=== PATIENT | female | born 1945 | race Caucasian/White ===

== ENCOUNTER 2019-07-03 12:07 | Day surgery (SDC) | payer MEDICARE ==
[2019-07-03] VITALS (10 sets, daily range): BP systolic 150–173; BP diastolic 61–93
[~2019-07-03] VITALS: Ht 165.1 cm; Wt 65.3 kg
[2019-07-03] MEDS ORDERED: diphenhydrAMINE 25mg capsule PO PRN (12:35)
[2019-07-03] MEDS ORDERED: normal saline 1,000 ML IV SCH (12:35)
[2019-07-03] MEDS ORDERED: ASPI-1265 PO (13:10)
[2019-07-03] MEDS ORDERED: MAGN64TA8 PO (13:10)
[2019-07-03] MEDS ORDERED: GLYB5TAB7 PO (13:10)
[2019-07-03] MEDS ORDERED: ISOS120T13 PO (13:10)
[2019-07-03] MEDS ORDERED: PANT-47 PO (13:10)
[2019-07-03] MEDS ORDERED: CLOP75TA35 PO (13:10)
[2019-07-03] MEDS ORDERED: DICL75TA5 PO (13:10)
[2019-07-03] MEDS ORDERED: METF500T PO (13:10)
[2019-07-03] MEDS ORDERED: AMLO2.5T2 PO (13:10)
[2019-07-03] MEDS ORDERED: ATOR40TA71 PO (13:10)
[2019-07-03] MEDS ORDERED: METO-411 PO (13:10)
[2019-07-03 13:15] LABS: BASOPHILS # (AUTO) 0.1 X10'3 (0-0.2); BASOPHILS % (AUTO) 0.9 % (0-1); EOSINOPHILS # (AUTO) 0.4 X10'3 (0-0.9); EOSINOPHILS % (AUTO) 5.8 % (0-6); HEMATOCRIT 32.8 % (35.0-45.0); HEMOGLOBIN 10.9 g/dl (12.0-16.0); LYMPHOCYTES # (AUTO) 2.9 X10'3 (1.1-4.8); LYMPHOCYTES % (AUTO) 42.8 % (21-51); MEAN CORPUSCULAR HEMOGLOBIN 29.8 PG (27.0-31.0); MEAN CORPUSCULAR HGB CONC 33.3 g/dL (33.0-36.5); MEAN CORPUSCULAR VOLUME 89.5 FL (78-98); MEAN PLATELET VOLUME 7.3 FL (7.4-10.4); MONOCYTES # (AUTO) 0.5 X10'3 (0-0.9); MONOCYTES % (AUTO) 7.8 % (2-12); NEUTROPHILS # (AUTO) 2.9 X10'3 (1.8-7.7); NEUTROPHILS % (AUTO) 42.7 % (42-75); PLATELET COUNT 258 X10'3 (140-440); RED BLOOD COUNT 3.67 X10'6 (4.20-5.60); RED CELL DISTRIBUTION WIDTH 14.8 % (11.5-14.5); WHITE BLOOD COUNT 6.8 X10'3 (4.5-11.0)
[2019-07-03 13:31] LABS: ALBUMIN 4.7 G/DL (3.4-5.0); ANION GAP 11 (8-16); BLOOD UREA NITROGEN 23 MG/DL (7-18); BUN/CREATININE RATIO 15.2 (6.6-38.0); CHLORIDE 105 MMOL/L (99-107); CREATININE 1.51 MG/DL (0.40-0.90); GLUCOSE 77 MG/DL (70-104); MAGNESIUM 1.7 MG/DL (1.5-2.4); SODIUM 142 MMOL/L (135-145); TOTAL CARBON DIOXIDE 26.3 MMOL/L (24-32); eGFR 34 ML/MIN
--- NOTE | 2019-07-03 14:18 | NUR ---
BLOOD SUGAR CHECKED, READING 60.. GIVEN ORANGE JUICE, RECHECKED 15 MINUTES LATER WITH A READING OF 63, 1 MORE ORANGE JUICE GIVEN. RECHECKED AND GLUCOSE LEVEL UP TO 93. ASYMPTOMATIC DURING ALL EPISODES OF LOW GLUCOSE.
[2019-07-03] MEDS ORDERED: iohexol 350 MG/ML 50ML vial IV ONE (14:34)
[2019-07-03] MEDS ORDERED: iohexol 350MG/ML 100ml bottle IV ONE ×4 (14:34→16:30)
[2019-07-03] MEDS ORDERED: fentaNYL/PF 50MCG/1 ML 2ML syringe ONE ×2 (14:34→15:37)
[2019-07-03] MEDS ORDERED: midazolam 2 mg/2 ml injection ONE ×2 (14:34→15:20)
[2019-07-03] MEDS ORDERED: LIDOcaine 1% W/epiNEPHrine 1:100,000 20ml vial ONE ×2 (14:35→14:36)
[2019-07-03] MEDS ORDERED: heparin 1,000unit/ml 10ml vial 10 ML ONE (15:11)
[2019-07-03] MEDS ORDERED: nitroGLYCERIN-Tridil 50MG/D5W 250 ML IV ONE (15:36)
[2019-07-03] MEDS ORDERED: adenosine 90 MG/30ml kit =/or below 120kg Cath Lab IV ONE ×2 (16:08→16:10)
[2019-07-03] MEDS ORDERED: clopidogrel 300mg tablet ONE (16:37)
[2019-07-03] MEDS ORDERED: nitroGLYCERIN 0.4mg SUBLingual tab SL ONE (16:39)
[2019-07-03] MEDS ORDERED: ondansetron/PF 4mg/2ml inj ONE (16:54)
[2019-07-03] MEDS ORDERED: acetaminophen 325mg tablet PO PRN (17:25)
[2019-07-03] MEDS ORDERED: HYDROcodone/acetaminophen 5mg/325mg tablet PO PRN (17:25)
[2019-07-03] MEDS ORDERED: ondansetron/PF 4mg/2ml inj IV PRN (17:25)
[2019-07-03] MEDS ORDERED: HYDROcodone/acetaminophen 10/325mg tab PO PRN (17:25)
[2019-07-03] MEDS ORDERED: proCHLORperazine 10 MG/2 ml inj IV PRN (17:25)
[2019-07-03] MEDS ORDERED: ketorolac tromethamine 15mg/ml inj. IV ONE (17:30)
== END 2019-07-03 21:10 | disposition home or self-care (01) ==
LOC: SSTAY O 12:07
PROVIDERS: ATTEND Internal Medicine Cardiovascular Disease
DX: I25.118 Atherosclerotic heart disease of native coronary artery with other forms of angina pectoris (principal); I10 Essential (primary) hypertension; E11.22 Type 2 diabetes mellitus with diabetic chronic kidney disease; N18.9 Chronic kidney disease, unspecified; E78.5 Hyperlipidemia, unspecified; E11.40 Type 2 diabetes mellitus with diabetic neuropathy, unspecified; D64.9 Anemia, unspecified; Z87.891 Personal history of nicotine dependence; Z79.899 Other long term (current) drug therapy; Z79.84 Long term (current) use of oral hypoglycemic drugs; Z79.82 Long term (current) use of aspirin; Z95.5 Presence of coronary angioplasty implant and graft; Z85.038 Personal history of other malignant neoplasm of large intestine; Z98.890 Other specified postprocedural states; Z90.49 Acquired absence of other specified parts of digestive tract; Z88.8 Allergy status to other drugs, medicaments and biological substances; Z82.49 Family history of ischemic heart disease and other diseases of the circulatory system
CPT/HCPCS: 36415; 80048; 82948; 83735; 85025; 85610; 93005; 93458; 99152; 99153; C1725; C1769; C1874; C1894; C9600; J0153; J1644; J1885; J2250; J2405; J3010; J7030; Q0163; Q9967; A4620; A6258; C1760; C9601; J3490

== ENCOUNTER 2019-08-20 06:21 | Day surgery (SDC) | payer MEDICARE ==
[2019-08-20] VITALS (9 sets, daily range): BP systolic 109–133; BP diastolic 57–76
[~2019-08-20] VITALS: Ht 165.1 cm; Wt 64.1 kg
[~2019-08-20 06:21] MED LIST: AMLO2.5T2 PO; ASPI-1265 PO; ATOR40TA71 PO; CLOP75TA35 PO; DICL75TA5 PO; GLYB5TAB7 PO; ISOS120T13 PO; MAGN64TA8 PO; METF500T PO; METO-411 PO; PANT-47 PO
[2019-08-20] MEDS ORDERED: normal saline 1,000 ML IV SCH (06:45)
[2019-08-20] MEDS ORDERED: diphenhydrAMINE 25mg capsule PO PRN (06:45)
[2019-08-20 07:21] LABS: BASOPHILS % (AUTO) 0.4 % (0-1); EOSINOPHILS # (AUTO) 0.2 X10'3 (0-0.9); EOSINOPHILS % (AUTO) 2.9 % (0-6); LYMPHOCYTES # (AUTO) 2.5 X10'3 (1.1-4.8); LYMPHOCYTES % (AUTO) 32.3 % (21-51); MEAN CORPUSCULAR HEMOGLOBIN 30.1 PG (27.0-31.0); MEAN CORPUSCULAR HGB CONC 32.8 g/dL (33.0-36.5); MEAN CORPUSCULAR VOLUME 91.9 FL (78-98); MONOCYTES # (AUTO) 0.7 X10'3 (0-0.9); MONOCYTES % (AUTO) 9.1 % (2-12); NEUTROPHILS # (AUTO) 4.3 X10'3 (1.8-7.7); NEUTROPHILS % (AUTO) 55.3 % (42-75); PLATELET COUNT 262 X10'3 (140-440); RED BLOOD COUNT 2.07 X10'6 (4.20-5.60); RED CELL DISTRIBUTION WIDTH 15.5 % (11.5-14.5); WHITE BLOOD COUNT 7.8 X10'3 (4.5-11.0)
[2019-08-20 07:27] LABS: HEMOGLOBIN 6.2 g/dl (12.0-16.0)
[2019-08-20 07:38] LABS: ALBUMIN 3.5 G/DL (3.4-5.0); ANION GAP 12 (8-16); BLOOD UREA NITROGEN 48 MG/DL (7-18); CALCIUM 9.6 MG/DL (8.5-10.1); CHLORIDE 106 MMOL/L (99-107); CREATININE 1.78 MG/DL (0.40-0.90); GLUCOSE 200 MG/DL (70-104); MAGNESIUM 1.9 MG/DL (1.5-2.4); POTASSIUM 5.3 MMOL/L (3.5-5.1); SODIUM 139 MMOL/L (135-145); TOTAL CARBON DIOXIDE 20.9 MMOL/L (24-32); eGFR 28 ML/MIN
[2019-08-20] MEDS ORDERED: acetaminophen 325mg tablet PO ONE (09:25)
[2019-08-20] MEDS ORDERED: DULA0.75 SQ (12:42)
[2019-08-20] MEDS ORDERED: RANO500T3 PO (12:42)
[2019-08-20 16:31] LABS: HEMATOCRIT 24.6 % (35.0-45.0); HEMOGLOBIN 8.5 g/dl (12.0-16.0); MEAN CORPUSCULAR HEMOGLOBIN 30.7 PG (27.0-31.0); MEAN CORPUSCULAR HGB CONC 34.7 g/dL (33.0-36.5); MEAN CORPUSCULAR VOLUME 88.7 FL (78-98); MEAN PLATELET VOLUME 7.1 FL (7.4-10.4); PLATELET COUNT 216 X10'3 (140-440); RED BLOOD COUNT 2.77 X10'6 (4.20-5.60); RED CELL DISTRIBUTION WIDTH 14.2 % (11.5-14.5); WHITE BLOOD COUNT 7.4 X10'3 (4.5-11.0)
--- NOTE | 2019-08-20 16:45 | NUR ---
Lab results called in to Dr. Palma. New orders received to discharge pt to home and follow up with primary MD. Addendum: 08/20/19 at 1843 by Cornelio Nunez RN Amended: Links added.
== END 2019-08-20 17:20 | disposition home or self-care (01) ==
LOC: SSTAY O 06:21
PROVIDERS: ATTEND Internal Medicine Cardiovascular Disease
DX: I25.118 Atherosclerotic heart disease of native coronary artery with other forms of angina pectoris (principal); Z53.8 Procedure and treatment not carried out for other reasons; D64.9 Anemia, unspecified; I25.2 Old myocardial infarction; E11.22 Type 2 diabetes mellitus with diabetic chronic kidney disease; I12.9 Hypertensive chronic kidney disease with stage 1 through stage 4 chronic kidney disease, or unspecified chronic kidney disease; N18.9 Chronic kidney disease, unspecified; E78.5 Hyperlipidemia, unspecified; E11.21 Type 2 diabetes mellitus with diabetic nephropathy; K21.9 Gastro-esophageal reflux disease without esophagitis; Z85.038 Personal history of other malignant neoplasm of large intestine; Z90.49 Acquired absence of other specified parts of digestive tract; Z98.890 Other specified postprocedural states; Z90.721 Acquired absence of ovaries, unilateral; Z79.01 Long term (current) use of anticoagulants; Z79.82 Long term (current) use of aspirin; Z79.899 Other long term (current) drug therapy; Z79.84 Long term (current) use of oral hypoglycemic drugs; Z95.5 Presence of coronary angioplasty implant and graft; Z72.89 Other problems related to lifestyle; Z88.8 Allergy status to other drugs, medicaments and biological substances
CPT/HCPCS: 36415; 36430; 80048; 82607; 82746; 82948; 83735; 85025; 85027; 85610; 86885; 86900; 86901; 86920; 93005; J7030; P9016

== ENCOUNTER 2021-05-08 08:16 | Day surgery (SDC) | payer MEDICARE ==
[2021-05-08] VITALS (10 sets, daily range): BP systolic 127–157; BP diastolic 70–86
[~2021-05-08] VITALS: Ht 165.1 cm; Wt 65.8 kg
[~2021-05-08 08:16] MED LIST changes: +CLOP75TA34 PO; -CLOP75TA35 PO; +DULA0.75 SQ; +RANO500T3 PO
[2021-05-08] MEDS ORDERED: diphenhydrAMINE 25mg capsule PO PRN (08:50)
[2021-05-08] MEDS ORDERED: normal saline 1,000 ML IV SCH ×2 (08:50→13:15)
[2021-05-08] MEDS ORDERED: ASCO500C18 PO (09:58)
[2021-05-08] MEDS ORDERED: NITR0.4T48 SL (10:03)
[2021-05-08] MEDS ORDERED: METO100T14 PO (10:21)
[2021-05-08] MEDS ORDERED: INSU300I (10:21)
[2021-05-08] MEDS ORDERED: dextrose ORAL solution 15 GM/59 ML bottle PO ONE (10:25)
[2021-05-08 10:41] LABS: BASOPHILS % (AUTO) 0.6 % (0-1); EOSINOPHILS # (AUTO) 0.2 X10'3 (0-0.9); EOSINOPHILS % (AUTO) 3.6 % (0-6); HEMATOCRIT 38.9 % (35.0-45.0); HEMOGLOBIN 13.2 g/dl (12.0-16.0); LYMPHOCYTES # (AUTO) 2.1 X10'3 (1.1-4.8); LYMPHOCYTES % (AUTO) 33.7 % (21-51); MEAN CORPUSCULAR HEMOGLOBIN 31.8 PG (27.0-31.0); MEAN CORPUSCULAR HGB CONC 33.9 g/dL (33.0-36.5); MEAN CORPUSCULAR VOLUME 93.7 FL (78-98); MEAN PLATELET VOLUME 7.3 FL (7.4-10.4); MONOCYTES # (AUTO) 0.5 X10'3 (0-0.9); MONOCYTES % (AUTO) 8.1 % (2-12); NEUTROPHILS # (AUTO) 3.3 X10'3 (1.8-7.7); PLATELET COUNT 207 X10'3 (140-440); RED BLOOD COUNT 4.16 X10'6 (4.20-5.60); RED CELL DISTRIBUTION WIDTH 13.1 % (11.5-14.5); WHITE BLOOD COUNT 6.1 X10'3 (4.5-11.0)
[2021-05-08 10:49] LABS: ALBUMIN 4.5 G/DL (3.4-5.0); ANION GAP 9 (8-16); BLOOD UREA NITROGEN 26 MG/DL (7-18); BUN/CREATININE RATIO 12.9 (6.6-38.0); CALCIUM 9.7 MG/DL (8.5-10.1); CHLORIDE 107 MMOL/L (99-107); CREATININE 2.02 MG/DL (0.40-0.90); GLUCOSE 76 MG/DL (70-104); MAGNESIUM 2.3 MG/DL (1.5-2.4); SODIUM 143 MMOL/L (135-145); TOTAL CARBON DIOXIDE 26.7 MMOL/L (24-32); eGFR 24 ML/MIN
[2021-05-08] MEDS ORDERED: LIDOcaine 1% (10mg/ml)w/preservative injection 20ml MDV ONE (11:11)
[2021-05-08] MEDS ORDERED: midazolam 1 mg/ML 2ml injection ONE ×3 (11:11→12:08)
[2021-05-08] MEDS ORDERED: fentaNYL/PF 50MCG/1 ML 2ML syringe ONE ×2 (11:11→12:08)
[2021-05-08] MEDS ORDERED: iohexol 350 MG/ML 50ML vial IV ONE (11:11)
[2021-05-08] MEDS ORDERED: heparin 1,000unit/ml 10ml vial 10 ML ONE (11:11)
[2021-05-08] MEDS ORDERED: iohexol 350MG/ML 100ml bottle IV ONE (11:11)
[2021-05-08] MEDS ORDERED: iohexol 350 MG/1 ML 200ml bottle ONE (11:48)
[2021-05-08] MEDS ORDERED: clopidogrel 300mg tablet ONE (12:41)
[2021-05-08] MEDS ORDERED: ondansetron/PF 4mg/2ml inj IV PRN (13:15)
[2021-05-08] MEDS ORDERED: HYDROcodone/acetaminophen 10/325mg tab PO PRN (13:20)
[2021-05-08] MEDS ORDERED: HYDROcodone/acetaminophen 5mg/325mg tablet PO PRN (13:20)
[2021-05-08] MEDS ORDERED: proCHLORperazine 10 MG/2 ml inj IV PRN (13:20)
== END 2021-05-08 17:45 | disposition home or self-care (01) ==
LOC: SSTAY O 08:16
PROVIDERS: ATTEND Internal Medicine Cardiovascular Disease
DX: R07.89 Other chest pain (principal); T82.855A Stenosis of coronary artery stent, initial encounter; I25.118 Atherosclerotic heart disease of native coronary artery with other forms of angina pectoris; E11.21 Type 2 diabetes mellitus with diabetic nephropathy; E78.5 Hyperlipidemia, unspecified; C18.9 Malignant neoplasm of colon, unspecified; K21.9 Gastro-esophageal reflux disease without esophagitis; I25.2 Old myocardial infarction; E11.22 Type 2 diabetes mellitus with diabetic chronic kidney disease; I12.9 Hypertensive chronic kidney disease with stage 1 through stage 4 chronic kidney disease, or unspecified chronic kidney disease; N18.9 Chronic kidney disease, unspecified; D64.9 Anemia, unspecified; Z95.5 Presence of coronary angioplasty implant and graft; Z85.038 Personal history of other malignant neoplasm of large intestine; Z90.49 Acquired absence of other specified parts of digestive tract; Z98.890 Other specified postprocedural states; Z90.721 Acquired absence of ovaries, unilateral; Z72.89 Other problems related to lifestyle; Z88.8 Allergy status to other drugs, medicaments and biological substances; Z79.01 Long term (current) use of anticoagulants; Z79.899 Other long term (current) drug therapy; Z82.49 Family history of ischemic heart disease and other diseases of the circulatory system; Y83.8 Other surgical procedures as the cause of abnormal reaction of the patient, or of later complication, without mention of misadventure at the time of the procedure; Y92.89 Other specified places as the place of occurrence of the external cause
CPT/HCPCS: 36415; 80048; 82948; 83735; 85025; 85610; 92978; 93005; 93458; 93571; 99152; 99153; C1725; C1751; C1753; C1760; C1769; C1874; C1894; C9600; J1644; J2001; J2250; J3010; J7030; Q0163; Q9967; 93572; A4620; A6258

== ENCOUNTER 2023-02-11 07:44 | Day surgery (SDC) | payer MEDICARE ==
[2023-02-11] VITALS (8 sets, daily range): BP systolic 133–153; BP diastolic 69–82
[~2023-02-11] VITALS: Ht 165.1 cm; Wt 64.8 kg
[~2023-02-11 07:44] MED LIST changes: +ASCO500C18 PO; -ASPI-1265 PO; -DICL75TA5 PO; -DULA0.75 SQ; -GLYB5TAB7 PO; +INSU300I; -MAGN64TA8 PO; -METF500T PO; -METO-411 PO; +METO100T14 PO; +NITR0.4T48 SL
[2023-02-11] MEDS ORDERED: ROSU40TA22 PO (08:21)
[2023-02-11] MEDS ORDERED: LEVO50TA8 PO (08:23)
[2023-02-11] MEDS ORDERED: LANTUS SQ (08:23)
[2023-02-11] MEDS ORDERED: TEMA30CA PO (08:23)
[2023-02-11] MEDS ORDERED: SEMA0.258 SQ (08:23)
[2023-02-11] MEDS ORDERED: EZET10TA48 PO (08:23)
[2023-02-11] MEDS ORDERED: SERT-433 PO (08:23)
[2023-02-11 08:42] LABS: BASOPHILS # (AUTO) 0.1 X10'3 (0-0.2); BASOPHILS % (AUTO) 0.9 % (0-1); EOSINOPHILS # (AUTO) 0.2 X10'3 (0-0.9); EOSINOPHILS % (AUTO) 3.9 % (0-6); HEMATOCRIT 32.8 % (35.0-45.0); HEMOGLOBIN 10.9 g/dl (12.0-16.0); LYMPHOCYTES # (AUTO) 1.8 X10'3 (1.1-4.8); LYMPHOCYTES % (AUTO) 29.5 % (21-51); MEAN CORPUSCULAR HEMOGLOBIN 29.8 PG (27.0-31.0); MEAN CORPUSCULAR HGB CONC 33.2 g/dL (33.0-36.5); MEAN CORPUSCULAR VOLUME 89.7 FL (78-98); MEAN PLATELET VOLUME 6.6 FL (7.4-10.4); MONOCYTES # (AUTO) 0.7 X10'3 (0-0.9); MONOCYTES % (AUTO) 11.1 % (2-12); NEUTROPHILS # (AUTO) 3.3 X10'3 (1.8-7.7); NEUTROPHILS % (AUTO) 54.6 % (42-75); PLATELET COUNT 177 X10'3 (140-440); RED BLOOD COUNT 3.66 X10'6 (4.20-5.60); RED CELL DISTRIBUTION WIDTH 13.3 % (11.5-14.5); WHITE BLOOD COUNT 6.1 X10'3 (4.5-11.0)
[2023-02-11 08:52] LABS: ALBUMIN 4.1 G/DL (3.4-5.0); ANION GAP 8 (8-16); BLOOD UREA NITROGEN 34 MG/DL (7-18); BUN/CREATININE RATIO 16.8 (10.0-20.0); CALCIUM 9.3 MG/DL (8.5-10.1); CHLORIDE 107 MMOL/L (99-107); CREATININE 2.02 MG/DL (0.40-0.90); GLUCOSE 106 MG/DL (70-104); POTASSIUM 4.2 MMOL/L (3.5-5.1); SODIUM 139 MMOL/L (135-145); TOTAL CARBON DIOXIDE 24.1 MMOL/L (24-32); eGFR 24 ML/MIN
[2023-02-11] MEDS ORDERED: diphenhydrAMINE 25mg capsule PO PRN (08:55)
[2023-02-11] MEDS ORDERED: SODIUM BICARB 150mEq/D5W 1L 999 ML IV SCH ×2 (08:55)
[2023-02-11] MEDS ORDERED: normal saline 1,000 ML IV SCH (08:55)
[2023-02-11] MEDS ORDERED: LIDOcaine 1% (10mg/ml) 2ml vial ONE (09:59)
[2023-02-11] MEDS ORDERED: iohexol 350 MG/ML 50ML vial IV ONE (10:00)
[2023-02-11] MEDS ORDERED: midazolam 1 mg/ML 2ml injection ONE ×2 (10:00→10:43)
[2023-02-11] MEDS ORDERED: iohexol 350MG/ML 100ml bottle IV ONE ×2 (10:00→11:05)
[2023-02-11] MEDS ORDERED: nitroGLYCERIN-Tridil 50MG/D5W 0 ML IV ONE (10:00)
[2023-02-11] MEDS ORDERED: fentaNYL/PF 50MCG/1 ML 2ML syringe ONE (10:00)
[2023-02-11] MEDS ORDERED: heparin 1,000unit/ml 10ml vial 10 ML ONE (10:00)
[2023-02-11] MEDS ORDERED: verapamil 2.5 mg/ml inj IV ONE (10:01)
[2023-02-11] MEDS ORDERED: LIDOcaine 1% 30ml preserv. free vial ONE (10:19)
[2023-02-11] MEDS ORDERED: ondansetron/PF 4mg/2ml inj IV PRN (12:00)
[2023-02-11] MEDS ORDERED: normal saline 1000ml 1,000 ML IV SCH (12:00)
[2023-02-11] MEDS ORDERED: HYDROcodone/acetaminophen 10/325mg tab PO PRN (12:05)
[2023-02-11] MEDS ORDERED: HYDROcodone/acetaminophen 5mg/325mg tablet PO PRN (12:05)
[2023-02-11] MEDS ORDERED: proCHLORperazine 10 MG/2 ml inj IV PRN (12:05)
== END 2023-02-11 15:00 | disposition home or self-care (01) ==
LOC: SSTAY O 07:44
PROVIDERS: ATTEND Internal Medicine Cardiovascular Disease
DX: I25.118 Atherosclerotic heart disease of native coronary artery with other forms of angina pectoris (principal); E78.5 Hyperlipidemia, unspecified; E11.21 Type 2 diabetes mellitus with diabetic nephropathy; K21.9 Gastro-esophageal reflux disease without esophagitis; E11.22 Type 2 diabetes mellitus with diabetic chronic kidney disease; I12.9 Hypertensive chronic kidney disease with stage 1 through stage 4 chronic kidney disease, or unspecified chronic kidney disease; N18.9 Chronic kidney disease, unspecified; D64.9 Anemia, unspecified; Z95.5 Presence of coronary angioplasty implant and graft; Z79.4 Long term (current) use of insulin; Z79.899 Other long term (current) drug therapy; Z85.038 Personal history of other malignant neoplasm of large intestine; Z90.49 Acquired absence of other specified parts of digestive tract; Z90.721 Acquired absence of ovaries, unilateral; Z88.8 Allergy status to other drugs, medicaments and biological substances; Z72.89 Other problems related to lifestyle; Z82.49 Family history of ischemic heart disease and other diseases of the circulatory system
CPT/HCPCS: 36415; 80048; 82948; 83735; 85025; 85610; 93005; 93458; 93571; 93572; 99152; 99153; C1751; J1644; J2250; J3010; J3490; J7030; Q0163; Q9967; A4620; A6258; C1725; C1760; C1894

== ENCOUNTER 2024-04-13 08:43 | Day surgery (SDC) | payer MEDICARE ==
[~2024-04-13] VITALS: Ht 165.1 cm; Wt 55.8 kg
[2024-04-13] VITALS (9 sets, daily range): BP systolic 119–156; BP diastolic 64–97; PULSE 76–86; RESP 10–12; TEMP 98.2; O2SAT 96–100
[~2024-04-13 08:43] MED LIST changes: -ASCO500C18 PO; -ATOR40TA71 PO; +EZET10TA48 PO; -INSU300I; +LANTUS SQ; +LEVO50TA8 PO; +ROSU40TA71 PO; +SEMA0.258 SQ; +SERT-433 PO; +TEMA30CA PO
[2024-04-13] MEDS: normal saline 1,000 ML IV SCH (09:15)
[2024-04-13] MEDS ORDERED: LANS30CA56 PO (09:30)
[2024-04-13] MEDS ORDERED: LORA5TAB9 PO (09:30)
[2024-04-13] MEDS ORDERED: INSU300I SQ (09:30)
[2024-04-13] MEDS ORDERED: MILK175C5 (09:30)
[2024-04-13] MEDS ORDERED: OMEG10006 PO (09:30)
[2024-04-13] MEDS ORDERED: RALO60TA13 PO (09:30)
[2024-04-13] MEDS ORDERED: B6/F1CAP (09:30)
[2024-04-13] MEDS ORDERED: GUAI400T92 PO (09:30)
[2024-04-13] MEDS ORDERED: MAGN64TA8 PO (09:30)
[2024-04-13 09:37] LABS: BASOPHILS % (AUTO) 0.7 % (0-1); EOSINOPHILS # (AUTO) 0.2 X10'3 (0-0.9); EOSINOPHILS % (AUTO) 3.9 % (0-6); HEMATOCRIT 37.2 % (35.0-45.0); HEMOGLOBIN 12.4 g/dl (12.0-16.0); LYMPHOCYTES % (AUTO) 32.4 % (21-51); MEAN CORPUSCULAR HEMOGLOBIN 29.9 PG (27.0-31.0); MEAN CORPUSCULAR HGB CONC 33.4 g/dL (33.0-36.5); MEAN CORPUSCULAR VOLUME 89.5 FL (78-98); MEAN PLATELET VOLUME 6.8 FL (7.4-10.4); MONOCYTES # (AUTO) 0.6 X10'3 (0-0.9); NEUTROPHILS # (AUTO) 3.4 X10'3 (1.8-7.7); PLATELET COUNT 163 X10'3 (140-440); RED BLOOD COUNT 4.16 X10'6 (4.20-5.60); RED CELL DISTRIBUTION WIDTH 13.3 % (11.5-14.5); WHITE BLOOD COUNT 6.2 X10'3 (4.5-11.0)
[2024-04-13 09:52] LABS: ALBUMIN 4.1 G/DL (3.4-5.0); ANION GAP 10 (8-16); BLOOD UREA NITROGEN 24 MG/DL (7-18); BUN/CREATININE RATIO 14.1 (10.0-20.0); CALCIUM 9.8 MG/DL (8.5-10.1); CHLORIDE 103 MMOL/L (99-107); GLUCOSE 135 MG/DL (70-104); MAGNESIUM 2.1 MG/DL (1.5-2.4); POTASSIUM 4.3 MMOL/L (3.5-5.1); PROTHROMBIN TIME 10.8 SECONDS (9.0-12.0); SODIUM 139 MMOL/L (135-145); TOTAL CARBON DIOXIDE 25.6 MMOL/L (24-32); eCRCL 25 ML/MIN; eGFR 29 ML/MIN
[2024-04-13] MEDS: sodium bicarbonate 1meq/ml syr 150 ML in dextrose 5%-water 1,000 ML IV ONE (10:13)
[2024-04-13] MEDS: diphenhydrAMINE 25mg capsule PO PRN (10:16)
[2024-04-13] MEDS ORDERED: midazolam 1 mg/ML 2ml injection ONE ×2 (11:33→12:52)
[2024-04-13] MEDS ORDERED: verapamil 2.5 mg/ml inj IV ONE (11:33)
[2024-04-13] MEDS ORDERED: fentaNYL/PF 50MCG/1 ML 2ML syringe ONE (11:33)
[2024-04-13] MEDS ORDERED: heparin 1,000unit/ml 10ml vial 10 ML ONE (11:33)
[2024-04-13] MEDS ORDERED: LIDOcaine 1% (10mg/ml) 2ml vial ONE (11:33)
[2024-04-13] MEDS ORDERED: iohexol 350MG/ML 100ml bottle IV ONE ×2 (11:34→13:25)
[2024-04-13] MEDS ORDERED: iohexol 350 MG/ML 50ML vial IV ONE (11:35)
[2024-04-13] MEDS ORDERED: nitroGLYCERIN 500mcg/5mL D5W 5 ML IV ONE (11:35)
[2024-04-13] MEDS ORDERED: LIDOcaine 1% 30ml preserv. free vial ONE (13:09)
[2024-04-13] MEDS ORDERED: clopidogrel 300mg tablet ONE (13:40)
[2024-04-13] MEDS ORDERED: aspirin 325mg tablet ONE (13:48)
[2024-04-13] MEDS ORDERED: HYDROcodone/acetaminophen 5mg/325mg tablet PO PRN (14:15)
[2024-04-13] MEDS ORDERED: HYDROcodone/acetaminophen 10/325mg tab PO PRN (14:15)
[2024-04-13] MEDS ORDERED: aspirin 81mg tab.chew PO ONE (14:15)
[2024-04-13] MEDS ORDERED: ondansetron/PF 4mg/2ml inj IV PRN (14:15)
[2024-04-13] MEDS ORDERED: proCHLORperazine 10 MG/2 ml inj IV PRN (14:15)
== END 2024-04-13 17:00 | disposition home or self-care (01) ==
LOC: SSTAY O 08:43
PROVIDERS: ATTEND Internal Medicine Cardiovascular Disease
DX: I25.118 Atherosclerotic heart disease of native coronary artery with other forms of angina pectoris (principal); I12.9 Hypertensive chronic kidney disease with stage 1 through stage 4 chronic kidney disease, or unspecified chronic kidney disease; E11.22 Type 2 diabetes mellitus with diabetic chronic kidney disease; N18.9 Chronic kidney disease, unspecified; E78.5 Hyperlipidemia, unspecified; K21.9 Gastro-esophageal reflux disease without esophagitis; I25.2 Old myocardial infarction; Z85.038 Personal history of other malignant neoplasm of large intestine; Z79.02 Long term (current) use of antithrombotics/antiplatelets; Z79.82 Long term (current) use of aspirin; Z79.890 Hormone replacement therapy; Z79.899 Other long term (current) drug therapy; Z90.49 Acquired absence of other specified parts of digestive tract; Z90.721 Acquired absence of ovaries, unilateral; Z95.5 Presence of coronary angioplasty implant and graft; Z98.890 Other specified postprocedural states; Z88.8 Allergy status to other drugs, medicaments and biological substances
CPT/HCPCS: 36415; 80048; 82948; 83735; 85025; 85610; 93005; 93458; 99152; 99153; C1725; C1751; C1760; C1769; C1874; C1894; C9600; J1644; J2001; J2250; J3010; J3490; J7030; J7070; Q0163; Q9967; Z7610

== ENCOUNTER 2024-08-06 15:21 | Outpatient (CLI) | payer MEDICARE ==
[~2024-08-06 15:21] MED LIST changes: +B6/F1CAP; +GUAI400T92 PO; +INSU300I SQ; +LANS30CA56 PO; -LANTUS SQ; +LORA5TAB9 PO; +MAGN64TA8 PO; +MILK175C5; +OMEG10006 PO; -PANT-47 PO; +RALO60TA13 PO; -ROSU40TA71 PO; +ROSU40TA89 PO
== END 2024-08-07 23:59 | disposition home or self-care (01) ==
LOC: RAD 15:21
PROVIDERS: ATTEND Surgery
DX: K21.9 Gastro-esophageal reflux disease without esophagitis (principal); K44.9 Diaphragmatic hernia without obstruction or gangrene; I10 Essential (primary) hypertension; E23.2 Diabetes insipidus
CPT/HCPCS: 74220

== ENCOUNTER 2025-06-21 08:15 | Day surgery (SDC) | payer MEDICARE ==
[~2025-06-21] VITALS: Ht 165.1 cm; Wt 57.5 kg
[2025-06-21] VITALS (10 sets, daily range): BP systolic 137–168; BP diastolic 72–85; PULSE 66–77; RESP 16; TEMP 98.4; O2SAT 96–98
[~2025-06-21 08:15] MED LIST changes: -MAGN64TA8 PO; +MAGN71.52 PO
--- NOTE | 2025-06-21 08:39 | ELECTROCARDIOGRAPH REPORT ---
[facility] Test Date: 2025-06-21 Test Time: 08:37:18 Pat Name: SUSI DOVE Department: [facility] Patient ID: [id number] Room: Gender: F [employer]: SHER : 1945 Requested By: MELITA MOISE Order Number: [id number] Reading MD: Dr. TJ Garber Measurements Intervals [place] Rate: 68 P: 53 CO: 160 QRS: 66 QRSD: 78 T: 52 QT: 387 QTc: 412 Interpretive Statements Sinus rhythm Electronically Signed On 06-21-2025 16:06:[address] TJ Garber Please click the below link to view image of tracing.
[2025-06-21] MEDS ORDERED: sodium bicarbonate 1meq/ml syr 150 ML in dextrose 5%-water 1,000 ML IV ONE (08:50)
[2025-06-21] MEDS ORDERED: SERT-434 PO (09:00)
[2025-06-21] MEDS ORDERED: LEVO75TA7 PO (09:00)
[2025-06-21] MEDS ORDERED: PANT40TA54 PO (09:00)
[2025-06-21] MEDS ORDERED: TRAZ-251 PO (09:00)
[2025-06-21] MEDS ORDERED: ASPI-1071 PO (09:01)
[2025-06-21 09:14] LABS: CREATININE 1.84 MG/DL (0.40-0.90); TOTAL CARBON DIOXIDE 28.7 MMOL/L (24-32); eCRCL 23 ML/MIN; eGFR 27 ML/MIN
[2025-06-21 09:15] LABS: INR 1.1 INR
[2025-06-21 09:17] LABS: MEAN PLATELET VOLUME 7.2 FL (7.4-10.4); RED CELL DISTRIBUTION WIDTH 12.9 % (11.5-14.5)
[2025-06-21] MEDS ORDERED: verapamil 2.5 mg/ml inj IV ONE (09:17)
[2025-06-21] MEDS ORDERED: midazolam 1 mg/ML 2ml injection ONE ×2 (09:17→09:45)
[2025-06-21] MEDS ORDERED: LIDOcaine 1% (10mg/ml) 2ml vial ONE (09:17)
[2025-06-21] MEDS ORDERED: iohexol 350 MG/ML 50ML vial IV ONE (09:18)
[2025-06-21] MEDS ORDERED: heparin 1,000unit/ml 10ml vial 10 ML ONE (09:18)
[2025-06-21] MEDS ORDERED: fentaNYL/PF 50MCG/1 ML 2ML syringe ONE (09:18)
[2025-06-21] MEDS ORDERED: nitroGLYCERIN 500mcg/5mL D5W 0 ML IV ONE (09:19)
[2025-06-21] MEDS ORDERED: LIDOcaine 1% 30ml preserv. free vial ONE (09:36)
[2025-06-21] MEDS ORDERED: clopidogrel 300mg tablet ONE (10:29)
[2025-06-21] MEDS ORDERED: HYDROcodone/acetaminophen 10/325mg tab PO PRN (11:30)
[2025-06-21] MEDS ORDERED: ondansetron/PF 4mg/2ml inj IV PRN (11:30)
[2025-06-21] MEDS ORDERED: HYDROcodone/acetaminophen 5mg/325mg tablet PO PRN (11:30)
[2025-06-21] MEDS ORDERED: normal saline 1000ml 1,000 ML IV ONE (11:30)
--- NOTE | 2025-06-21 11:32 | CARDIOLOGY REPORT ---
DATE OF SERVICE: 06/21/2025 DICTATING PHYSICIAN: MELITA MOISE DO CARDIAC CATHETERIZATION REPORT REFERRING PHYSICIAN: Judy Jacobsen MD. CLINICAL HISTORY: This 79-year-old woman, who has had multiple stenting procedures to all 3 major coronary circulations. Her most recent intervention was in 03/2024. At the time of an early 05/2025 visit, she complained of relatively recent onset of exertional dyspnea and chest discomfort, both of which were relieved by rest. Because of her past history, a cardiac catheterization was ordered. PROCEDURES PERFORMED: * Left heart catheterization. * Left ventriculography. * Selective coronary arteriography. * PTCA/stent placement (proximal RCA). * 45 minutes conscious sedation supervision. DESCRIPTION OF THE PROCEDURE: The patient was sedated with fentanyl and Versed. He was then prepared and draped in the usual manner. The right inguinal area was infiltrated with 1% lidocaine. Using a micropuncture set and a Seldinger technique, a 7-Tuvaluan sheath was placed in the common femoral artery. 3000 units of heparin were given. At a later time, an additional 6000 units of heparin were also given. Left heart catheterization and left ventriculography were performed using a 6-Tuvaluan pigtail catheter. Coronary arteriography was performed using 6-Tuvaluan #4 left and right Luis Enrique catheters. PTCA/STENT PLACEMENT: The right coronary was engaged with a 6-Tuvaluan side-holed #4 right Luis Enrique catheter. A ChoICE PT2 guidewire was passed through a high-grade stenosis in the proximal vessel and the tip was positioned distally. This lesion was dilated with a 3.5 x 15 mm balloon and the residual stenosis was covered with a 3.5 mm x 15 mm Oxford frontier drug-eluting stent deployed at 17 atmospheres. After test injections demonstrated stability of the treated area, final arteriography was performed. The arterial puncture site was successfully Perclosed. RESULTS: HEMODYNAMIC DATA: The left ventricular end diastolic pressure was 6 mmHg. There was no gradient across the aortic valve. LEFT VENTRICULOGRAM: The left ventriculogram was technically satisfactory. The estimated ejection fraction was 45-50%. There were stents visible in the proximal and mid LAD, the proximal circumflex, and in the proximal, mid, and distal right coronary. CORONARY ARTERIOGRAPHY: The coronary arteriograms were technically satisfactory. The patient had a right dominant system. LEFT MAIN CORONARY ARTERY: The left main was a medium-sized unobstructed vessel bifurcating into the left anterior descending and circumflex coronary arteries. LEFT ANTERIOR DESCENDING CORONARY ARTERY: The LAD was a small to medium-sized transapical vessel. There was a tiny proximal first diagonal branch and a small to medium-sized second diagonal, which took its origin from the mid LAD. The proximal LAD was narrowed by about 40%. Stents in the proximal and mid LAD were widely patent. There were no outright obstructive lesions in the left anterior descending coronary artery. CIRCUMFLEX CORONARY ARTERY: The circumflex was a medium-sized main stem vessel. There was a small to medium-sized first obtuse marginal and there was a small caliber posterolateral branch. There were no obstructive lesions in the circumflex and stents in the proximal and distal vessel were widely patent. RIGHT CORONARY ARTERY: The right coronary was a medium to large main stem vessel. There was a medium-sized posterior descending branch, a tiny first posterolateral, and a small second posterolateral. There was a 95% in-stent area of restenosis within the proximal right coronary. There were no other obstructive lesions in the right coronary system. PTCA/STENT PLACEMENT: Following balloon angioplasty and re-stenting of the proximal in-stent restenosis, there was no significant residual stenosis and brisk unrestricted flow distally. CONCLUSIONS: * 1. New 95% in-stent restenosis in the proximal right coronary. * 2. There was also a 40% narrowing in the proximal LAD, which was considered insignificant. *All other previously stented areas in the LAD, circumflex and in the mid and distal right coronary were widely patent. * 3. Successful balloon angioplasty and re-stenting of the proximal right coronary. Following these interventions, there was no residual stenosis. MANUELITO flow before and after intervention was graded as 3. * 4. Left ventricular function is only very slightly below normal. The visually estimated ejection fraction was 45-50%. PLAN AND RECOMMENDATIONS: Ongoing medical therapy. MELITA MOISE DO TID: [id number] RECEIPT: [id number] /[facility]
== END 2025-06-21 14:30 | disposition home or self-care (01) ==
LOC: SSTAY O 08:15
PROVIDERS: ATTEND Internal Medicine Cardiovascular Disease
DX: T82.855A Stenosis of coronary artery stent, initial encounter (principal); I25.118 Atherosclerotic heart disease of native coronary artery with other forms of angina pectoris; I12.9 Hypertensive chronic kidney disease with stage 1 through stage 4 chronic kidney disease, or unspecified chronic kidney disease; E11.22 Type 2 diabetes mellitus with diabetic chronic kidney disease; N18.30 Chronic kidney disease, stage 3 unspecified; E11.21 Type 2 diabetes mellitus with diabetic nephropathy; E78.5 Hyperlipidemia, unspecified; K21.9 Gastro-esophageal reflux disease without esophagitis; Z79.02 Long term (current) use of antithrombotics/antiplatelets; Z79.899 Other long term (current) drug therapy; Z90.49 Acquired absence of other specified parts of digestive tract; Z90.721 Acquired absence of ovaries, unilateral; Z98.890 Other specified postprocedural states; Y83.1 Surgical operation with implant of artificial internal device as the cause of abnormal reaction of the patient, or of later complication, without mention of misadventure at the time of the procedure; Y92.89 Other specified places as the place of occurrence of the external cause
CPT/HCPCS: 36415; 80048; 82948; 83735; 85025; 85610; 93005; 93458; 99152; 99153; A6258; A6402; C1725; C1751; C1760; C1769; C1874; C1894; C9600; J1644; J2003; J2250; J3010; J7030; Q0163; Q9967; Z7610; A6449; J3490